=== PATIENT | male | born 1990 | race African-American/Black ===

== ENCOUNTER 2017-09-03 14:44 | Inpatient (IN) | payer BC ==
[2017-09-04 06:55] LABS: Basophils % (A) 1 %; Eosinophils # (A) 0.4 k/uL (0-0.7); Eosinophils % (A) 5 %; HCT 47.2 % (39.0-53.0); HGB 14.9 gm/dL (13.0-17.5); Lymphocytes # (A) 2.9 k/uL (1.0-4.8); Lymphocytes % (A) 40 %; MCH 28.9 pg (25.0-35.0); MCHC 31.7 g/dL (31.0-37.0); MCV 91.2 fL (80.0-100.0); Mean Platelet Volume 8.1; Monocytes # (A) 0.5 k/uL (0-1.0); Monocytes % (A) 7 %; Neutrophils # (A) 3.3 k/uL (1.3-7.7); Neutrophils % (A) 45 %; Platelet Count 190 k/uL (150-450); RBC 5.17 m/uL (4.30-5.90); RDW 12.9 % (11.5-15.5); WBC 7.3 k/uL (3.8-10.6)
[2017-09-04 07:12] LABS: ALT 38 U/L (21-72); AST 20 U/L (17-59); Albumin 3.9 g/dL (3.5-5.0); Alkaline Phosphatase 45 U/L (38-126); Anion Gap 5 mmol/L; Blood Urea Nitrogen 14 mg/dL (9-20); Calcium 9.2 mg/dL (8.4-10.2); Carbon Dioxide 28 mmol/L (22-30); Chloride 106 mmol/L (98-107); Cholesterol 134 mg/dL (<200); Glucose 96 mg/dL (74-99); HDL Cholesterol 46 mg/dL (40-60); LDL Cholesterol,Calculated 71 mg/dL (0-99); Magnesium 1.9 mg/dL (1.6-2.3); Potassium 4.2 mmol/L (3.5-5.1); Sodium 139 mmol/L (137-145); Total Bilirubin 0.5 mg/dL (0.2-1.3); Total Protein 6.3 g/dL (6.3-8.2); Triglycerides 86 mg/dL (<150)
--- NOTE | 2017-09-04 12:34 | P.HPIM ---
History of Present Illness This is a pleasant 27 years old male with past medical history of asthma, hypertension, ADD/ADHD, on Inderal, currently day smoker and marijuana abuse who presents with difficulty talking. The aunt and his grandfather were at bedside and the patient noding yes for them to be involved in his MANAGEMENT. As per aunt patient is under a lot of stress when he has about 3 weeks ago a big fight with his family areas patient was complaining of from slurred speech 3 weeks ago, after 2 weeks ago he has lost his ability to talk, and one week ago they noticed that also he has lost his ability to writing as well however he can type on the eye phone and he wants to say, but as per and takes him longer than usual. Patient looks awake and oriented. His not able to talk. However the patient denies any headache, no blurred vision, no difficulty eating , no weakness or abnormal sensations in his extremities or anywhere else. No change in urine or bowel habits. No urine or bowel incontinence. No fever. No history of trauma. Patient to [facility], and he had a negative CAT scan of the head as per family at bedside. And was tranferred to [facility] for needing of psych evaluation. Review of Systems CONSTITUTIONAL: No fever, no malaise, no fatigue. HEENT: No recent visual problems or hearing problems. Denied any sore throat. CARDIOVASCULAR: No orthopnea, PND, no palpitations, no syncope. PULMONARY: No shortness of breath, no cough, no hemoptysis. GASTROINTESTINAL: No diarrhea, no nausea, no vomiting, no abdominal pain. Normoactive bowel sounds. NEUROLOGICAL: No headaches, no weakness, no numbness. HEMATOLOGICAL: Denies any bleeding or petechiae. GENITOURINARY: Denies any burning micturition, frequency, or urgency. MUSCULOSKELETAL/RHEUMATOLOGICAL: Denies any joint pain, swelling, or any muscle pain. ENDOCRINE: Denies any polyuria or polydipsia. Past Medical History Past Medical History: Asthma, Hypertension History of Any Multi-Drug Resistant Organisms: None Reported Past Anesthesia/Blood Transfusion Reactions: Unable to Obtain Past Psychological History: ADD/ADHD Additional Psychological History / Comment(s): Adderall Smoking Status: Current some day smoker Past Alcohol Use History: None Reported Past Drug Use History: Marijuana Medications and Allergies Home Medications Medication Instructions Recorded Confirmed Type Dextroamphetamine/Amphetamine 20 mg PO DAILY 09/03/17 09/03/17 History [Adderall] Zolpidem [Ambien] 10 mg PO HS 09/03/17 09/03/17 History Allergies Allergy/AdvReac Type Severity Reaction Status Date / Time No Known Allergies Allergy Verified 09/03/17 17:10 Physical Exam Vitals: Vital Signs Temp Pulse Resp BP Pulse Ox 09/04/17 11:37 66 18 09/04/17 11:36 98.2 F 66 18 136/84 97 09/04/17 08:10 97.5 F L 54 L 16 121/84 97 09/04/17 08:04 55 L 17 09/04/17 04:05 97.5 F L 55 L 17 119/68 98 09/04/17 04:00 60 20 09/03/17 23:51 98.3 F 60 18 117/72 96 09/03/17 20:10 98.4 F 65 17 118/58 98 09/03/17 17:10 99.0 F 70 20 126/84 98 09/03/17 16:51 99.0 F 70 18 126/84 98 Intake and Output 09/03/17 09/04/17 09/04/17 22:59 06:59 14:59 Intake Total 0 Output Total 200 Balance -200 0 Intake: Oral 0 Output: Urine 200 Other: Voiding Method Toilet Toilet Toilet Urinal Urinal Urinal # Voids 1 1 Weight 116.7 kg 113.4 kg GENERAL: The patient is alert and oriented x3, not in any acute distress. Well developed, well nourished. HEENT: Pupils are round and equally reacting to light. EOMI. No scleral icterus. No conjunctival pallor. Normocephalic, atraumatic. No pharyngeal erythema. No thyromegaly. CARDIOVASCULAR: S1 and S2 present. No murmurs, rubs, or gallops. PULMONARY: Chest is clear to auscultation, no wheezing or crackles. ABDOMEN: Soft, nontender, nondistended, normoactive bowel sounds. No palpable organomegaly. MUSCULOSKELETAL: No joint swelling or deformity. EXTREMITIES: No cyanosis, clubbing, or pedal edema. NEUROLOGICAL: Gross neurological examination did not reveal any focal deficits. SKIN: No rashes. Results CBC & Chem 7: 09/04/17 06:32 09/04/17 06:32 Thrombosis Risk Factor Assmnt - Choose All That Apply Any of the Below Risk Factors Present?: Yes Each Factor Represents 1 point: Obesity (BMI >25) Other Risk Factors: No Other congenital or acquired thrombophilia - If yes, enter type in comment: No Thrombosis Risk Factor Assessment Total Risk Factor Score: 1 Thrombosis Risk Factor Assessment Level: Low Risk Assessment and Plan Assessment: Difficulty talking for 3 weeks duration , rule out organic as well as psychiatric causes Possible stroke, History of anxiety, and anger, which might be contributing to his symptoms. needs psychiatrist evaluation History of asthma Current cigarette smoker History of marijuana abuse Plan: 27 years old male with history of substance abuse, who presents because of difficulty talking and writing for 3 weeks duration. Continue with same treatment. Continue with symptomatic treatment. Resume home medication. Patient will need neurological and psychiatric evaluation. Standard blood work this CBC, CMP, TSH, homocysteine, lipid panel, magnesium. We'll send urine toxicology and urine analysis, as the patient and he nodded "ok" . Place the patient on telemetry. Patient didn't want nicotine patch. Monitor lytes and vitals. DVT and GI prophylaxis. Further recommendation based on the clinical course DVT prophylaxis: Patient is active and mobile with no walking difficulty. Heparin has more risks than benefits at now react continue with mechanical prophylaxis GI prophylaxis: Not needed
--- NOTE | 2017-09-04 16:40 | P.CNNES ---
History of Present Illness Consult date: 09/04/17 Requesting physician: Chriss E Sheet Reason for Consult: Aphasia Chief complaint: Inability to Speak History of Present Illness: Neurology is consulting on a 27-year-old male with a history of asthma, hypertension, ADD/ADHD, currently daily smoking marijuana user with difficulty with speech. Patient has extensive home disruption and significant police response to the location on an ongoing basis. approximately 2 weeks ago, patient had significant triggering event. Patient then began having slurred speech, inability to express words and complete sentences. Ultimately ending in his inability to talk within the last 7 days. Patient reportedly did also lose his ability to write. Patient denies any other neurological deficits or changes. Patient's aunt is in the room with him. On contact, patient is supine in bed resting in no acute distress. patient is alert and oriented 3. As noted and is in the room. Patient is able to intermittently express responses to questions in 1-2 word answers but then at times cannot engage in active speech. Patient cannot engage in multiple word sentences but now has the ability to write it on a very basic level. Patient becomes extremely frustrated when attempting to communicate verbally. Aunt states that he has expressed to her he knows what he wants to say but he cannot say it at times. This involves all ranges of his life activities and not just related to his stressful home events. as noted patient does have psychiatric history related ADD and ADHD as well as anxiety per aunt. since being hospitalized, patient's symptoms are slowly beginning to relent and aunt does associated at least some relenting to being out of his stressful environment. Review of Systems systems not noted are negative Past Medical History Past Medical History: Asthma, Hypertension History of Any Multi-Drug Resistant Organisms: None Reported Past Anesthesia/Blood Transfusion Reactions: Unable to Obtain Past Psychological History: ADD/ADHD Additional Psychological History / Comment(s): Adderall Smoking Status: Current some day smoker Past Alcohol Use History: None Reported Past Drug Use History: Marijuana Medications and Allergies Home Medications Medication Instructions Recorded Confirmed Type Dextroamphetamine/Amphetamine 20 mg PO DAILY 09/03/17 09/03/17 History [Adderall] Zolpidem [Ambien] 10 mg PO HS 09/03/17 09/03/17 History Allergies Allergy/AdvReac Type Severity Reaction Status Date / Time No Known Allergies Allergy Verified 09/03/17 17:10 Physical Examination - Vital Signs Vital Signs: Vital Signs Temp Pulse Resp BP Pulse Ox 09/04/17 15:40 66 18 09/04/17 11:37 66 18 09/04/17 11:36 98.2 F 66 18 136/84 97 09/04/17 08:10 97.5 F L 54 L 16 121/84 97 09/04/17 08:04 55 L 17 09/04/17 04:05 97.5 F L 55 L 17 119/68 98 09/04/17 04:00 60 20 09/03/17 23:51 98.3 F 60 18 117/72 96 09/03/17 20:10 98.4 F 65 17 118/58 98 09/03/17 17:10 99.0 F 70 20 126/84 98 09/03/17 16:51 99.0 F 70 18 126/84 98 Intake and Output 09/04/17 09/04/17 09/04/17 06:59 14:59 22:59 Intake Total 120 Balance 120 Intake: Oral 120 Other: Voiding Method Toilet Toilet Toilet Urinal Urinal Urinal # Voids 1 Weight 113.4 kg General appearance: Alert & oriented x3, no apparent distress. Head: Atraumatic, normocephalic, normal inspection Eyes: Well appearance, PERRLA, EOMI. Absent scleral icterus, conjunctival injection, nystagmus, periorbital swelling. Ear, nose and throat: Normal exam, mucous membranes moist Neck: Normal inspection, absent tenderness, lymphadenopathy. Respiratory: No increased work of breathing Cardiovascular: Regular rate, rhythm GI/abdominal: No guarding Extremities: Full range of motion, normal capillary refill, no tenderness, pedal edema joint swelling, calf tenderness. patient unable to engage in fluent speech as noted. Neurological: cranial nerves II through XII intact no lateralizing weakness no seizure activity noted on physical exam no pronator drift and no nystagmus. Left lower extremity: 5/5 Right lower extremity: 5/5 Left upper extremity: 5/5 Right upper extremity:5 /5 Sensation: Left lower extremity: normal Right lower extremity: normal Left upper extremity: normal Right upper extremity:normal Psychological: Appears anxious as well as under emotional stress. Very emotional when interacting with provider including mood swings as well. Results - Laboratory Findings CBC and BMP: 09/04/17 06:32 07/29/18 06:32 Assessment and Plan (1) Aphasia Narrative/Plan: patient does have a aphasia. Patient is unable to speak more than 1-2 word responses intermittently. Patient is not able to respond at all times with verbal responses. When patient is unable to verbally respond, patient becomes distressed and withdraws. Patient did not have a CT of the brain on arrival. Given the patient's 2 week history of symptoms, I will forego CT of the brain and wait for MRI of the brain tomorrow. Patient will have further stroke workup to include EEG, carotid Doppler study, serum homocysteine. Recommend psychiatric consult as well. Current Visit: Yes Status: Acute Code(s): R47.01 - APHASIA SNOMED Code(s) : 45976072 (2) Anxiety Narrative/Plan: Recommence psych consult as noted in #1 Current Visit: Yes Status: Acute Code(s): F41.9 - ANXIETY DISORDER, UNSPECIFIED SNOMED Code(s): 17885973 (3) Cannabis abuse Narrative/Plan: discussed cannabis use Recommend psych consults as noted #1 above, reassess with patient. Current Visit: Yes Status: Acute Code(s): F12.10 - CANNABIS ABUSE, UNCOMPLICATED SNOMED Code(s): 65831090 (4) ADD (attention deficit disorder) Narrative/Plan: as noted #1 above, recommend psychiatric consultation Current Visit: Yes Status: Acute Code(s): F98.8 - OTH BEHAV/EMOTN DISORD W ONSET USLY OCCUR IN CHLDHD AND ADOL SNOMED Code(s): 662648531 Plan: Status: Neurology will continue to follow and provide updates as needed or warranted. Contact our office with any questions I have discussed the plan of care with the physician prior to implementation and he agrees with the plan as implemented.
[2017-09-04 17:03] LABS: Appearance,Urine Clear (Clear); Bilirubin,Urine Negative (Negative); Blood,Urine Negative (Negative); Color,Urine Light Yellow; Glucose,Urine (UA) Negative (Negative); Ketones,Urine Negative (Negative); Leukocyte Esterase,Urine Negative (Negative); Nitrite,Urine Negative (Negative); PH, Urine 6.5 (5.0-8.0); Protein,Urine Negative (Negative); Specific Gravity,Urine 1.007 (1.001-1.035); Urobilinogen,Urine <2.0 mg/dL (<2.0)
--- NOTE | 2017-09-05 10:47 | US ---
EXAMINATION TYPE: US carotid duplex BILAT DATE OF EXAM: 09/05/2017 COMPARISON: NONE CLINICAL HISTORY: aphasia, rule out stroke. HTN. 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 EXAM MEASUREMENTS: RIGHT: Peak Systolic Velocity (PSV) cm/sec ----- Right CCA: 117.3 ----- Right ICA: 120.0 ----- Right ECA: 100.0 ICA/CCA ratio: 1.0 RIGHT: End Diastole cm/sec ----- Right CCA: 22.0 ----- Right ICA: 27.4 ----- Right ECA: 14.4 LEFT: Peak Systolic Velocity (PSV) cm/sec ----- Left CCA: 127.3 ----- Left ICA: 106.2 ----- Left ECA: 120.0 ICA/CCA ratio: 0.8 LEFT: End Diastole cm/sec ----- Left CCA: 22.9 ----- Left ICA: 29.4 ----- Left ECA: 11.6 VERTEBRALS (direction of flow): Right Vertebral: Antegrade Left Vertebral: Antegrade Rhythm: Arrhythmia No significant stenosis on grayscale imaging. No wall thickening. No plaque. IMPRESSION: 1. Peak systolic velocities that are approaching elevated within the carotid systems bilaterally with out abnormal internal carotid artery to common carotid artery ratio. Therefore findings suggest hyper tension rather than focal stenosis. Additionally no focal stenosis is seen on grayscale imaging. 2. Incidentally noted arrhythmia. Correlate with EKG.
[2017-09-05 11:56] LABS: Urine Alcohol Negative (Negative); Urine Barbiturate Negative (Negative); Urine Cocaine Negative (Negative); Urine Methadone Negative (Negative); Urine Opiates Negative (Negative); Urine Phencyclidine Negative (Negative)
[2017-09-05] MEDS ORDERED: LORazepam 2 MG/ML INJ IV PRN (13:39)
--- NOTE | 2017-09-05 13:59 | P.DS ---
Providers Date of admission: 09/03/17 16:31 Attending physician: Chriss Cabral MD Consults: 09/03/17 17:23 Consult Physician Urgent Consulting Provider: Nathanael Caraballo Consult Reason/Comments: Aphasia Do you want consulting provider notified?: Yes 09/04/17 11:21 Consult Physician Urgent Consulting Provider: Delmi Kraus Consult Reason/Comments: anxiety-agitation Do you want consulting provider notified?: Already Contacted Primary care physician: Stated None Hospital Course: 27-year-old gentleman with history of ADD/ADHD is admitted for aphasia or difficulty talking. Patient is able to talk to me. No other focal neurological deficit appreciated carotid Doppler was opted which did not show any significant abnormality. And the patient is getting an MRI. If MRI is negative to essentially rule out organic causes for aphasia. Patient aphasia is probably secondary to his psychiatric issues psychiatric was consulted. If cleared by psychiatry and neurology patient will be discharged today. PHYSICAL EXAMINATION: GENERAL: The patient is alert and oriented x3, not in any acute distress. Well developed, well nourished. HEENT: Pupils are round and equally reacting to light. EOMI. No scleral icterus. No conjunctival pallor. Normocephalic, atraumatic. No pharyngeal erythema. No thyromegaly. CARDIOVASCULAR: S1 and S2 present. No murmurs, rubs, or gallops. PULMONARY: Chest is clear to auscultation, no wheezing or crackles. ABDOMEN: Soft, nontender, nondistended, normoactive bowel sounds. No palpable organomegaly. MUSCULOSKELETAL: No joint swelling or deformity. EXTREMITIES: No cyanosis, clubbing, or pedal edema. NEUROLOGICAL: Gross neurological examination did not reveal any focal deficits. SKIN: No rashes. Difficulty talking for 3 weeks duration , probably psychiatric ADHD History of anxiety, History of asthma: Not in acute exacerbation Current cigarette smoker History of marijuana abuse Plan - Discharge Summary Discharge Rx Participant: No New Discharge Prescriptions: Continue Dextroamphetamine/Amphetamine [Adderall] 20 mg PO DAILY No Action Zolpidem [Ambien] 10 mg PO HS Discharge Medication List Dextroamphetamine/Amphetamine [Adderall] 20 mg PO DAILY 09/03/17 [History] Zolpidem [Ambien] 10 mg PO HS 09/03/17 [History] Discharge Disposition: HOME SELF-CARE
[2017-09-05 14:53] VITALS: BMI 35.9
--- NOTE | 2017-09-05 16:23 | P.CN ---
Psychiatric Consult - . Consult date: 09/05/17 Consult:: 09/05/17 16:02 Identification: Patient is a 27-year-old male who was transferred from [facility] for a psych eval. Reason for Consult: Anxiety and agitation History of Present Illness: Patient's chart was reviewed and the patient was seen and interviewed in his room, without family members at his request. Patient is unable to speak, responded to most questions he attempted to do so on several occasions and at times was able to respond to some of my questions at other times he would just shrug and it and indicate this meant he didn't know. Patient stated he couldn't even text while he was with me this time and was unsure of why. Per the record the patient apparently had some disagreement 3 weeks ago with the family which she is unable to indicate to me occurred, began slurring his speech at that time in 2 weeks ago began not talking and a week ago began not writing. He had been using his cell phone to text and per the nurse has been using his cell phone here to talk and communicate with staff. Per the patient he is unable to indicate to me that there was any fights with anyone in the family or any upsetting incident that occurred 3 weeks ago other than the fact that 2 weeks ago he was laid off from work. 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 He indicated to me that he lives with his sister, her 4 children and her father is not the patient's father and indicated that there was a lot of noise and activity in the house but could not explain to me why this was bothersome to him. He states that he had been living elsewhere before with friends and indicated that he was tired of living with them. He reported to me that he has never had a difficulty like this before in the past, stated that he has never been treated for any depressive episodes, manic episodes or psychotic symptoms. Patient is taking Adderall and temazepam and looking on the MAPS he is prescribed Adderall 20 mg numbers 90 last picked up on August 08, temazepam 30 mg # 30 last picked up on 07/01. Patient states that he's been on these medications for the last 2 years. He states he didn't take them for the last 2 or 3 days. Patient reported that he was eating and sleeping at night. Patient could identify nothing that precipitated this event no incidents of fighting with the family, friends or other traumatic event that may have occurred. Patient denied that he is ever felt suicidal in the past no history of suicide attempts and denies current suicidal ideation. Patient could not endorse any depressive history in the past, manic history in the past or psychotic symptoms in the past. Patient did not endorse any of the symptoms currently. Patient was unable to explain to me why the symptoms began he would just shrug and point to other people in the room for the other patient and stating that this was his problem noise. Past Psychiatric History: Per the patient he has no prior psychiatric history but has been treated for ADD by his primary care physician with Adderall 20 mg 3 times a day as well as temazepam 30 mg at bedtime Past Medical/Surgical History: Patient has a history of asthma, hypertension and it is reported in the chart that he was born with a hole in his heart Family History: Unable to obtain Social History: Patient states that he currently lives with his sister her 4 children and sister's father. He states he's been living there for 4 months prior to that he was living with friends. 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 Patient was unable to give me any further history as at this point patient stopped talking and would just shrug his shoulders. Substance Use History: Patient states he drinks 2 beers a night, smoked marijuana daily since the age of 16 and use cocaine in the past. He denies any other drug use or IV drug use and does use tobacco products. He could not tell me if he had been taking or using anything different recently. Legal History: Unable to obtain Mental status: Appearance/Attitude: Patient is dressed in casual clothing, was found in the ICU lounge watching television, patient came to his room to be interviewed and ambulated without difficulty, he made intermittent eye contact and was superficially cooperative Behavior: Patient did not exhibit any psychomotor agitation or retardation Speech/Language: Patient's speech was intermittent, at times he spoke in a series soft voice and incomplete sentences and answer yes or no to questions or would remain mute and just shrug his shoulders and making hand gestures as though he didn't know. Thought Process: Unable to assess is his answers to the questions he did respond verbally to work goal-directed Thought Content: Patient denied auditory or visual hallucination and no delusions or paranoid ideation were elicited. Patient did not appear to be responding to internal stimuli during the interview. Patient was unable to tell me what precipitated his symptoms beginning 3 weeks ago but did acknowledge that they began with slurred speech, then the inability to talk then the inability to write. Patient was using his phone to text things to speak with me however he had difficulty doing this during the interview and gave up. He states that he's been sleeping and eating well at home. Suicidal/Homicidal Ideation: Patient denied any current suicidal or homicidal ideation and has no history of suicide attempts Sensorium/Cognition: Patient was alert and oriented to person, location and situation further testing was unable to be obtained due to the patient's inability to participate in the interview Mood/Affect: Patient's mood was sullen, his affect was blunted Insight/Judgment: Patient's insight and judgment are fair but difficult to assess Assessment: Patient presents after a three-week history of slurred speech, then the inability to talk and an inability to write but still text being on his cell phone to communicate. Patient has a history of marijuana use on a daily basis, as well as being prescribed Adderall and temazepam which she has taken on a daily basis for at least 2 years. Patient has no prior psychiatric history no history of suicide attempts and states he's never been treated with any other medications. It is unclear to me if this is due to a physiologic problem, a reaction to an unknown substance that he used as his UDS was taken here and only showed positive marijuana. Patient could also be having a conversion disorder or a factitious disorder. Patient's computed tomography scan at the other facility was negative we are awaiting an MRI to be done tonight as well as an EEG. Patient's laboratory studies were all within normal limits other than the UDS being positive for cannabis. Diagnosis: History of ADD, Rule out a conversion disorder, rule out a factitious disorder Plan: Patient does not require an inpatient psychiatric admission, he is not expressing any suicidal or homicidal ideation at this time, there is no evidence of a psychotic process nor is there any evidence of a depressive or manic process. Patient continues to have a workup to rule out all physiologic reasons for his symptoms, I spoke with social work regarding giving the patient referrals for outpatient counseling as there seems to be some stress and chaos in his life which I am unable to clearly define. I would not begin any psychotropic medication at this time I would not recommend that the patient restart his Adderall or temazepam when he leaves the hospital. I would also encourage the patient to avoid all alcohol and drugs once he leaves the hospital. I will sign off the case if there are any further questions or concerns please don't hesitate to contact me 09/05/17 16:06 09/05/17 16:14 09/05/17 16:21 09/05/17 16:23
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
--- NOTE | 2017-09-05 22:24 | MR ---
EXAMINATION TYPE: MR brain wo con DATE OF EXAM: 09/05/2017 COMPARISON: NONE HISTORY: Headaches, weakness, and lightheadedness or patient. Aphasia per order. TECHNIQUE: Multiplanar, multisequence imaging of the brain and brainstem is performed without IV cont rast. FINDINGS: Diffusion weighted images demonstrate no evidence of a recent infarct or other diffusion abnormality. There is no extraaxial fluid collection or significant white matter signal abnormality. The ventricu lar system and cisternal spaces are normal in size and appearance. The brain volume is age appropria te. Midline structures demonstrate normal morphology. The craniocervical junction appears within normal limits. Normal vascular flow voids are present. There is air-fluid level in the left maxillary sinus. Remainder paranasal sinuses are clear. The globes are intact bilaterally. No suspicious opacificatio n bilateral mastoid air cells is seen. IMPRESSION: Probable acute left maxillary sinusitis otherwise unremarkable study.
[2017-09-06 09:34] VITALS: RESP 18
[2017-09-06 11:47] VITALS: BP 142/78; PULSE 78; TEMP 98.1
--- NOTE | 2017-09-06 12:27 | P.DS ---
Providers Date of admission: 09/03/17 16:31 Attending physician: Chriss Cabral MD Consults: 09/03/17 17:23 Consult Physician Urgent Consulting Provider: Nathanael Caraballo Consult Reason/Comments: Aphasia Do you want consulting provider notified?: Yes 09/04/17 11:21 Consult Physician Urgent Consulting Provider: Delmi Kraus Consult Reason/Comments: anxiety-agitation Do you want consulting provider notified?: Already Contacted Primary care physician: Stated None Hospital Course: 27-year-old gentleman with history of ADD/ADHD is admitted for aphasia or difficulty talking. Patient is able to talk to me. No other focal neurological deficit appreciated carotid Doppler was obtained which did not show any significant abnormality. And the patient is getting an MRI. If MRI is negative to essentially rule out organic causes for aphasia. Patient aphasia is probably secondary to his psychiatric issues psychiatric was consulted. .Patient had an MRI which was negative. All the workup is negative. Patient may have some psychosomatic disorder or malingering contributed to his symptoms. Psychiatric evaluated the patient. The recommending to discontinue Adderall as well as Ambien his medications will be discontinued and patient will be discharged home to follow up with psychiatry as an outpatient. Please refer to neurology and psychiatric dictation for further details. PHYSICAL EXAMINATION: GENERAL: The patient is alert and oriented x3, not in any acute distress. Well developed, well nourished. HEENT: Pupils are round and equally reacting to light. EOMI. No scleral icterus. No conjunctival pallor. Normocephalic, atraumatic. No pharyngeal erythema. No thyromegaly. CARDIOVASCULAR: S1 and S2 present. No murmurs, rubs, or gallops. PULMONARY: Chest is clear to auscultation, no wheezing or crackles. ABDOMEN: Soft, nontender, nondistended, normoactive bowel sounds. No palpable organomegaly. MUSCULOSKELETAL: No joint swelling or deformity. EXTREMITIES: No cyanosis, clubbing, or pedal edema. NEUROLOGICAL: Gross neurological examination did not reveal any focal deficits. SKIN: No rashes. Difficulty talking for 3 weeks duration , probably psychiatric ADHD History of anxiety, History of asthma: Not in acute exacerbation Current cigarette smoker History of marijuana abuse Plan - Discharge Summary Discharge Rx Participant: No New Discharge Prescriptions: Discontinued Zolpidem [Ambien] 10 mg PO HS Dextroamphetamine/Amphetamine [Adderall] 20 mg PO DAILY Follow up Appointment(s)/Referral(s): Arin Perez MD [REFERRING] - 1 Week Nathanael Caraballo MD [STAFF PHYSICIAN] - 1 Week () Patient Instructions/Handouts: Aphasia (DC) Activity/Diet/Wound Care/Special Instructions: Please follow up with a primary care doctor in 1 week. Discharge Disposition: HOME SELF-CARE
--- NOTE | 2017-09-06 18:56 | EEG ---
ELECTROENCEPHALOGRAM REPORT DATE OF SERVICE: 09/06/2017 REASON FOR TESTING: Stroke. DESCRIPTION OF THE PROCEDURE: This EEG was performed using a 21-channel digital electroencephalograph, following international 10-20 system. DESCRIPTION OF THE RECORDING: From the beginning of the tracing, and with patient's eyes closed, the background rhythm was mostly consisting of 8 Hz alpha frequency in the posterior occipital leads. No obvious asymmetry is seen. Photic stimulation was performed with a minimal driving response seen. No pathological waves were elicited. Hyperventilation was not performed. The patient does reach stage II of sleep during the tracing and occasional sleep spindles are seen. No epileptiform discharges were seen. His EKG lead showed an irregularly irregular rhythm with a normal rate. INTERPRETATION: This asleep and awake EEG can be considered within normal limits, except his EKG lead showed an irregularly irregular rhythm with a normal rate. No epileptiform discharges were seen. The absence of epileptiform discharges does not rule out the diagnosis of epilepsy; therefore clinical correlation is recommended. MMLYN / BERNAN: [id number] /
== END 2017-09-06 16:07 | disposition home or self-care (01) | DRG 93 ==
LOC: 6SEL 16:31
PROVIDERS: ADMIT Internal Medicine; ATTEND Internal Medicine
DX: R47.01 Aphasia (principal); F41.9 Anxiety disorder, unspecified; F90.9 Attention-deficit hyperactivity disorder, unspecified type; F12.10 Cannabis abuse, uncomplicated; F17.210 Nicotine dependence, cigarettes, uncomplicated; Z76.5 Malingerer [conscious simulation]; F45.9 Somatoform disorder, unspecified
CPT/HCPCS: 70551; 80053; 80061; 80306; 81003; 83090; 83735; 84443; 85025; 87086; 93880; 95819

== ENCOUNTER 2017-09-09 12:42 | Emergency (ER) | payer BC ==
[2017-09-09 13:00] VITALS: BP 124/81; PULSE 74; RESP 18; TEMP 98.6
--- NOTE | 2017-09-09 13:49 | ED ---
General Adult HPI - General Chief complaint: Neuro Symptoms/Deficit Stated complaint: confusion, weakness Time Seen by Provider: 09/09/17 13:00 Source: patient, family, RN notes reviewed, old records reviewed Mode of arrival: ambulatory Limitations: no limitations - History of Present Illness Initial comments: 27-year-old male presenting with a facial, and progressive neurologic symptoms. Patient was seen at this institution with aphasia, dysarthria, he was evaluated by neurology and psychiatry. Patient has failed to improve according to his mother. He is also complaining of some tongue numbness. Denies headache. Denies focal weakness. He does complain of some clumsiness with his hands. Patient has been ambulatory. No vision changes. No chest pain or shortness of breath. No abdominal pain. No nausea vomiting. Patient was seen by both neurology and psychiatry, thought to be stress response. - Related Data Home Medications Medication Instructions Recorded Confirmed No Known Home Medications 09/09/17 09/09/17 Allergies Allergy/AdvReac Type Severity Reaction Status Date / Time No Known Allergies Allergy Verified 09/09/17 13:18 Review of Systems ROS Statement: Those systems with pertinent positive or pertinent negative responses have been documented in the HPI. ROS Other: All systems not noted in ROS Statement are negative. Past Medical History Past Medical History: Asthma, Hypertension History of Any Multi-Drug Resistant Organisms: None Reported Past Surgical History: Adenoidectomy, Orthopedic Surgery Additional Past Surgical History / Comment(s): hand Past Anesthesia/Blood Transfusion Reactions: Unable to Obtain Past Psychological History: ADD/ADHD Smoking Status: Current some day smoker Past Alcohol Use History: None Reported Past Drug Use History: Marijuana General Exam Limitations: no limitations General appearance: alert, in no apparent distress Head exam: Present: atraumatic, normocephalic Eye exam: Present: normal appearance, PERRL, EOMI ENT exam: Present: normal exam, normal oropharynx Neck exam: Present: normal inspection. Absent: tenderness, meningismus Respiratory exam: Present: normal lung sounds bilaterally. Absent: respiratory distress, wheezes, rales Cardiovascular Exam: Present: regular rate, normal rhythm GI/Abdominal exam: Present: soft. Absent: distended, tenderness, guarding, rebound Extremities exam: Present: normal inspection, normal capillary refill, pedal edema Neurological exam: Present: alert, oriented X3. Absent: CN II-XII intact (A phasic, mild dysarthria) Psychiatric exam: Present: normal affect, normal mood. Absent: homicidal ideation, suicidal ideation Skin exam: Present: warm, dry, intact. Absent: cyanosis, diaphoretic Course Vital Signs 09/09/17 12:56 Temperature 98.6 F Pulse Rate 74 Respiratory 18 Rate Blood Pressure 124/81 O2 Sat by Pulse 99 Oximetry Medical Decision Making - Medical Decision Making Given the patient's recent admission and workup case was discussed with neurology on-call, Shantelle from Dr. Caraballo's office. Patient had MRI, computed tomography scan, carotid ultrasound, EEG, multiple metabolic laboratory studies. Workup was completely negative. Neurology does not recommend any further testing at this time. They are willing to see the patient as an outpatient within the next several days. Appointment is made for this patient while he is in the emergency department. Patient and his mother are agreeable with plan. Disposition Clinical Impression: Aphasia Disposition: HOME SELF-CARE Condition: Fair Is patient prescribed a controlled substance at d/c from ED?: No Referrals: Arin Perez MD [Primary Care Provider] - 1-2 days Nathanael Caraballo MD [STAFF PHYSICIAN] - 1-2 days Time of Disposition: 13:49
== END 2017-09-09 13:50 | disposition home or self-care (01) ==
LOC: EC 12:42
DX: R47.01 Aphasia (principal); R53.1 Weakness; R41.0 Disorientation, unspecified; R20.0 Anesthesia of skin; F82 Specific developmental disorder of motor function; F17.200 Nicotine dependence, unspecified, uncomplicated
CPT/HCPCS: 99285

== ENCOUNTER 2017-09-20 17:27 | Emergency (ER) | payer BC ==
[2017-09-20] MEDS ORDERED: SODIUM CHLORIDE 0.9% 1,000 ML IV STA ×3 (17:59→19:44)
--- NOTE | 2017-09-20 18:15 | ED ---
General Adult HPI - General Stated complaint: mental health Time Seen by Provider: 09/20/17 17:29 Source: RN notes reviewed, old records reviewed - History of Present Illness Initial comments: This is a 27-year-old male the ER for evaluation. Patient resents today for evaluation regarding mental health. Patient's brought in by PD as he was found at his friend's house crying on the ground naked. Patient states that he is unsure of why he was doing this. Patient is going going through outpatient workup regarding mental and psychiatric illness, versus neurological illness. Patient and family are both concern is of swelling to right-sided face. Patient denies any shortness of breath no difficulty swallowing no recent fevers. - Related Data Home Medications Medication Instructions Recorded Confirmed traZODone HCL [Desyrel] 100 mg PO HS 09/20/17 09/20/17 Previous Rx's Medication Instructions Recorded Amoxic-Pot Clav 875-125Mg 1 tab PO Q12HR #20 tablet 09/20/17 [Augmentin 875-125] Allergies Allergy/AdvReac Type Severity Reaction Status Date / Time No Known Allergies Allergy Verified 09/20/17 17:53 Review of Systems ROS Statement: Those systems with pertinent positive or pertinent negative responses have been documented in the HPI. ROS Other: All systems not noted in ROS Statement are negative. Past Medical History Past Medical History: Asthma, Hypertension History of Any Multi-Drug Resistant Organisms: None Reported Past Surgical History: Adenoidectomy, Orthopedic Surgery Additional Past Surgical History / Comment(s): hand Past Anesthesia/Blood Transfusion Reactions: Unable to Obtain Past Psychological History: ADD/ADHD Smoking Status: Current some day smoker Past Alcohol Use History: None Reported Past Drug Use History: Marijuana General Exam - General Exam Comments Initial Comments: does have swollen lymph nodes right side of face General appearance: alert, in no apparent distress Head exam: Present: atraumatic, normocephalic, normal inspection Eye exam: Present: normal appearance, PERRL, EOMI. Absent: scleral icterus, conjunctival injection, periorbital swelling ENT exam: Present: normal exam, mucous membranes moist Neck exam: Present: normal inspection. Absent: tenderness, meningismus, lymphadenopathy Respiratory exam: Present: normal lung sounds bilaterally. Absent: respiratory distress, wheezes, rales, rhonchi, stridor Cardiovascular Exam: Present: regular rate, normal rhythm, normal heart sounds. Absent: systolic murmur, diastolic murmur, rubs, gallop, clicks GI/Abdominal exam: Present: soft, normal bowel sounds. Absent: distended, tenderness, guarding, rebound, rigid Extremities exam: Present: normal inspection, full ROM, normal capillary refill. Absent: tenderness, pedal edema, joint swelling, calf tenderness Back exam: Present: normal inspection Neurological exam: Present: alert, oriented X3, CN II-XII intact Psychiatric exam: Present: normal affect, normal mood Skin exam: Present: warm, dry, intact, normal color. Absent: rash Course Vital Signs 09/20/17 09/20/17 09/20/17 18:17 19:09 19:41 Temperature 98.8 F 99.0 F Pulse Rate 91 89 Respiratory 18 18 Rate Blood Pressure 128/69 134/75 O2 Sat by Pulse 97 97 Oximetry 09/20/17 09/20/17 09/20/17 20:16 20:29 21:15 Temperature 99.0 F Pulse Rate 87 82 Respiratory 16 16 18 Rate Blood Pressure 131/76 125/96 O2 Sat by Pulse 97 97 Oximetry 09/20/17 21:38 Temperature Pulse Rate 85 Respiratory 18 Rate Blood Pressure 125/96 O2 Sat by Pulse 96 Oximetry - Reevaluation(s) Reevaluation #1: PD did bring in patient, patient is not petitioned for evaluation by psychiatry The patient, family at length regarding patient's symptoms and treatment, evaluation and follow-up. EKG Findings - EKG Comments: EKG Findings:: EKG shows sinus rhythm rate of 90, CT 166, QRS 94, QTc 420 Medical Decision Making - Medical Decision Making Plan I male the ER for evaluation of right ear pain, right-sided facial swelling. Patient does have right ear infection, will continue treatment for ear infection. We'll continue outpatient treatment for evaluation regarding symptoms as he was found lying naked in friend's yard. Patient is not homicidal or suicidal, is cooperative here in the emergency room and can be discharged home to family - Lab Data Result diagrams: 09/20/17 19:08 09/20/17 19:08 Lab Results 09/20/17 09/20/17 09/20/17 Range/Units 19:08 19:08 19:08 WBC 8.4 (3.8-10.6) k/uL RBC 5.17 (4.30-5.90) m/uL Hgb 15.7 (13.0-17.5) gm/dL Hct 45.7 (39.0-53.0) % MCV 88.5 (80.0-100.0) fL MCH 30.4 (25.0-35.0) pg MCHC 34.3 (31.0-37.0) g/dL RDW 12.2 (11.5-15.5) % Plt Count 186 (150-450) k/uL Neutrophils % 73 % Lymphocytes % 19 % Monocytes % 6 % Eosinophils % 1 % Basophils % 1 % Neutrophils # 6.1 (1.3-7.7) k/uL Lymphocytes # 1.6 (1.0-4.8) k/uL Monocytes # 0.5 (0-1.0) k/uL Eosinophils # 0.1 (0-0.7) k/uL Basophils # 0.0 (0-0.2) k/uL ESR (0-15) mm/hr PT (9.0-12.0) sec INR (<1.2) Sodium 141 (137-145) mmol/L Potassium 4.5 (3.5-5.1) mmol/L Chloride 109 H (98-107) mmol/L Carbon Dioxide 20 L (22-30) mmol/L Anion Gap 12 mmol/L BUN 13 (9-20) mg/dL Creatinine 0.90 (0.66-1.25) mg/dL Est GFR (CKD-EPI)AfAm >90 (>60 ml/min/1.73 sqM) Est GFR (CKD-EPI)NonAf >90 (>60 ml/min/1.73 sqM) Glucose 118 H (74-99) mg/dL Calcium 9.6 (8.4-10.2) mg/dL Total Bilirubin 0.5 (0.2-1.3) mg/dL AST 25 (17-59) U/L ALT 37 (21-72) U/L Alkaline Phosphatase 42 (38-126) U/L Total Creatine Kinase 127 (55-170) U/L CK-MB (CK-2) 0.7 (0.0-2.4) ng/mL CK-MB (CK-2) Rel Index 0.6 Troponin I <0.012 (0.000-0.034) ng/mL C-Reactive Protein (<10.0) mg/L Total Protein 7.0 (6.3-8.2) g/dL Albumin 4.5 (3.5-5.0) g/dL Amylase 66 (30-110) U/L Lipase 133 (23-300) U/L Urine Color Urine Appearance (Clear) Urine pH (5.0-8.0) Ur Specific [place] (1.001-1.035) Urine Protein (Negative) Urine Glucose (UA) (Negative) Urine Ketones (Negative) Urine Blood (Negative) Urine Nitrite (Negative) Urine Bilirubin (Negative) Urine Urobilinogen (<2.0) mg/dL Ur Leukocyte Esterase (Negative) Salicylates <1.0 mg/dL Urine Opiates Screen (NotDetected) Ur Oxycodone Screen (NotDetected) Urine Methadone Screen (NotDetected) Ur Propoxyphene Screen (NotDetected) Acetaminophen <10.0 ug/mL Ur Barbiturates Screen (NotDetected) U Tricyclic Antidepress (NotDetected) Ur Phencyclidine Scrn (NotDetected) Ur Amphetamines Screen (NotDetected) U Methamphetamines Scrn (NotDetected) U Benzodiazepines Scrn (NotDetected) [place] <0.2 mmol/L Urine Cocaine Screen (NotDetected) U Marijuana (THC) Screen (NotDetected) Serum Alcohol <10 mg/dL 09/20/17 09/20/17 09/20/17 Range/Units 19:08 19:08 19:08 WBC (3.8-10.6) k/uL RBC (4.30-5.90) m/uL Hgb (13.0-17.5) gm/dL Hct (39.0-53.0) % MCV (80.0-100.0) fL MCH (25.0-35.0) pg MCHC (31.0-37.0) g/dL RDW (11.5-15.5) % Plt Count (150-450) k/uL Neutrophils % % Lymphocytes % % Monocytes % % Eosinophils % % Basophils % % Neutrophils # (1.3-7.7) k/uL Lymphocytes # (1.0-4.8) k/uL Monocytes # (0-1.0) k/uL Eosinophils # (0-0.7) k/uL Basophils # (0-0.2) k/uL ESR 2 (0-15) mm/hr PT 10.9 (9.0-12.0) sec INR 1.1 (<1.2) Sodium (137-145) mmol/L Potassium (3.5-5.1) mmol/L Chloride (98-107) mmol/L Carbon Dioxide (22-30) mmol/L Anion Gap mmol/L BUN (9-20) mg/dL Creatinine (0.66-1.25) mg/dL Est GFR (CKD-EPI)AfAm (>60 ml/min/1.73 sqM) Est GFR (CKD-EPI)NonAf (>60 ml/min/1.73 sqM) Glucose (74-99) mg/dL Calcium (8.4-10.2) mg/dL Total Bilirubin (0.2-1.3) mg/dL AST (17-59) U/L ALT (21-72) U/L Alkaline Phosphatase (38-126) U/L Total Creatine Kinase (55-170) U/L CK-MB (CK-2) (0.0-2.4) ng/mL CK-MB (CK-2) Rel Index Troponin I (0.000-0.034) ng/mL C-Reactive Protein <5.0 (<10.0) mg/L Total Protein (6.3-8.2) g/dL Albumin (3.5-5.0) g/dL Amylase 63 (30-110) U/L Lipase (23-300) U/L Urine Color Urine Appearance (Clear) Urine pH (5.0-8.0) Ur Specific [place] (1.001-1.035) Urine Protein (Negative) Urine Glucose (UA) (Negative) Urine Ketones (Negative) Urine Blood (Negative) Urine Nitrite (Negative) Urine Bilirubin (Negative) Urine Urobilinogen (<2.0) mg/dL Ur Leukocyte Esterase (Negative) Salicylates mg/dL Urine Opiates Screen (NotDetected) Ur Oxycodone Screen (NotDetected) Urine Methadone Screen (NotDetected) Ur Propoxyphene Screen (NotDetected) Acetaminophen ug/mL Ur Barbiturates Screen (NotDetected) U Tricyclic Antidepress (NotDetected) Ur Phencyclidine Scrn (NotDetected) Ur Amphetamines Screen (NotDetected) U Methamphetamines Scrn (NotDetected) U Benzodiazepines Scrn (NotDetected) [place] mmol/L Urine Cocaine Screen (NotDetected) U Marijuana (THC) Screen (NotDetected) Serum Alcohol mg/dL 09/20/17 Range/Units 20:28 WBC (3.8-10.6) k/uL RBC (4.30-5.90) m/uL Hgb (13.0-17.5) gm/dL Hct (39.0-53.0) % MCV (80.0-100.0) fL MCH (25.0-35.0) pg MCHC (31.0-37.0) g/dL RDW (11.5-15.5) % Plt Count (150-450) k/uL Neutrophils % % Lymphocytes % % Monocytes % % Eosinophils % % Basophils % % Neutrophils # (1.3-7.7) k/uL Lymphocytes # (1.0-4.8) k/uL Monocytes # (0-1.0) k/uL Eosinophils # (0-0.7) k/uL Basophils # (0-0.2) k/uL ESR (0-15) mm/hr PT (9.0-12.0) sec INR (<1.2) Sodium (137-145) mmol/L Potassium (3.5-5.1) mmol/L Chloride (98-107) mmol/L Carbon Dioxide (22-30) mmol/L Anion Gap mmol/L BUN (9-20) mg/dL Creatinine (0.66-1.25) mg/dL Est GFR (CKD-EPI)AfAm (>60 ml/min/1.73 sqM) Est GFR (CKD-EPI)NonAf (>60 ml/min/1.73 sqM) Glucose (74-99) mg/dL Calcium (8.4-10.2) mg/dL Total Bilirubin (0.2-1.3) mg/dL AST (17-59) U/L ALT (21-72) U/L Alkaline Phosphatase (38-126) U/L Total Creatine Kinase (55-170) U/L CK-MB (CK-2) (0.0-2.4) ng/mL CK-MB (CK-2) Rel Index Troponin I (0.000-0.034) ng/mL C-Reactive Protein (<10.0) mg/L Total Protein (6.3-8.2) g/dL Albumin (3.5-5.0) g/dL Amylase (30-110) U/L Lipase (23-300) U/L Urine Color Yellow Urine Appearance Clear (Clear) Urine pH 6.0 (5.0-8.0) Ur Specific [place] 1.020 (1.001-1.035) Urine Protein Negative (Negative) Urine Glucose (UA) Negative (Negative) Urine Ketones Negative (Negative) Urine Blood Negative (Negative) Urine Nitrite Negative (Negative) Urine Bilirubin Negative (Negative) Urine Urobilinogen <2.0 (<2.0) mg/dL Ur Leukocyte Esterase Negative (Negative) Salicylates mg/dL Urine Opiates Screen Not Detected (NotDetected) Ur Oxycodone Screen Not Detected (NotDetected) Urine Methadone Screen Not Detected (NotDetected) Ur Propoxyphene Screen Not Detected (NotDetected) Acetaminophen ug/mL Ur Barbiturates Screen Not Detected (NotDetected) U Tricyclic Antidepress Not Detected (NotDetected) Ur Phencyclidine Scrn Not Detected (NotDetected) Ur Amphetamines Screen Not Detected (NotDetected) U Methamphetamines Scrn Not Detected (NotDetected) U Benzodiazepines Scrn Not Detected (NotDetected) [place] mmol/L Urine Cocaine Screen Not Detected (NotDetected) U Marijuana (THC) Screen Detected H (NotDetected) Serum Alcohol mg/dL - Radiology Data Radiology results: report reviewed (Ultrasound neck CT a IHC and facial bones negative for acute disease CT soft tissue neck which also shows minimal lymphadenopathy), image reviewed Disposition Clinical Impression: Cannabis abuse, Right middle ear infection, Lymphadenitis Disposition: HOME SELF-CARE Condition: Good Instructions: Lymphadenopathy (ED), Otitis Media (ED) Prescriptions: Amoxic-Pot Clav 875-125Mg [Augmentin 875-125] 1 tab PO Q12HR #20 tablet Is patient prescribed a controlled substance at d/c from ED?: No Referrals: Bazo,Charbal B, MD [Primary Care Provider] - 1-2 days
[2017-09-20 19:24] LABS: Basophils % (A) 1 %; Eosinophils # (A) 0.1 k/uL (0-0.7); Eosinophils % (A) 1 %; HCT 45.7 % (39.0-53.0); HGB 15.7 gm/dL (13.0-17.5); Lymphocytes # (A) 1.6 k/uL (1.0-4.8); Lymphocytes % (A) 19 %; MCH 30.4 pg (25.0-35.0); MCHC 34.3 g/dL (31.0-37.0); MCV 88.5 fL (80.0-100.0); Mean Platelet Volume 7.9; Monocytes # (A) 0.5 k/uL (0-1.0); Monocytes % (A) 6 %; Neutrophils # (A) 6.1 k/uL (1.3-7.7); Neutrophils % (A) 73 %; Platelet Count 186 k/uL (150-450); RBC 5.17 m/uL (4.30-5.90); RDW 12.2 % (11.5-15.5); WBC 8.4 k/uL (3.8-10.6)
[2017-09-20 19:28] LABS: INR 1.1 (<1.2); Prothrombin Time 10.9 sec (9.0-12.0)
[2017-09-20 19:38] LABS: ALT 37 U/L (21-72); AST 25 U/L (17-59); Acetaminophen <10.0 ug/mL; Albumin 4.5 g/dL (3.5-5.0); Alcohol <10 mg/dL; Alkaline Phosphatase 42 U/L (38-126); Amylase 66 U/L (30-110); Anion Gap 12 mmol/L; Blood Urea Nitrogen 13 mg/dL (9-20); Calcium 9.6 mg/dL (8.4-10.2); Carbon Dioxide 20 mmol/L (22-30); Chloride 109 mmol/L (98-107); Glucose 118 mg/dL (74-99); Lipase 133 U/L (23-300); Lithium <0.2 mmol/L; Potassium 4.5 mmol/L (3.5-5.1); Salicylate <1.0 mg/dL; Sodium 141 mmol/L (137-145); Total Bilirubin 0.5 mg/dL (0.2-1.3)
[2017-09-20 19:42] VITALS: TEMP 99
[2017-09-20] MEDS ORDERED: DEXAMETHASONE SOD PHOSPHATE 10 MG/ML 1 ML VIAL IV STA (19:44)
[2017-09-20 19:51] LABS: Creatine Kinase 127 U/L (55-170)
[2017-09-20 20:04] LABS: Creatine Kinase MB 0.7 ng/mL (0.0-2.4); Troponin I <0.012 ng/mL (0.000-0.034)
[2017-09-20 20:05] LABS: Amylase 63 U/L (30-110); C Reactive Protein <5.0 mg/L (<10.0)
[2017-09-20 20:45] LABS: Appearance,Urine Clear (Clear); Bilirubin,Urine Negative (Negative); Blood,Urine Negative (Negative); Color,Urine Yellow; Glucose,Urine (UA) Negative (Negative); Ketones,Urine Negative (Negative); Leukocyte Esterase,Urine Negative (Negative); Nitrite,Urine Negative (Negative); Protein,Urine Negative (Negative); Urobilinogen,Urine <2.0 mg/dL (<2.0)
--- NOTE | 2017-09-20 20:47 | US ---
EXAMINATION TYPE: US thyroid st tissue head/neck DATE OF EXAM: 09/20/2017 COMPARISON: NONE CLINICAL HISTORY: Pain. Lump right side of neck. GLAND SIZE: NODULES RIGHT: Two hypoechoic areas seen right neck largest measuring .5cm suggestive of lymph nodes. IMPRESSION: There are ordinary appearing lymph nodes in the area of the lump. These measure 4 mm and 5 mm.
[2017-09-20 20:54] LABS: Amphetamine Screen,Urine Not Detected (NotDetected); Barbiturate Screen,Urine Not Detected (NotDetected); Benzodiazepines Screen,Urine Not Detected (NotDetected); Cocaine Screen,Urine Not Detected (NotDetected); Methadone Screen, Urine Not Detected (NotDetected); Opiate Screen,Urine Not Detected (NotDetected); Oxycodone Screen, Urine Not Detected (NotDetected); Phencyclidine Screen,Urine Not Detected (NotDetected); Tricyclic Antidepressant,Urine Not Detected (NotDetected); Urn Cannabinoid Scrn Detected (NotDetected)
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
[2017-09-20 21:16] VITALS: BP 125/96; RESP 18
[2017-09-20] MEDS ORDERED: AMOXIC-POT CLAV 875-125MG 1 EACH TAB PO STA (21:38)
[2017-09-20] MEDS ORDERED: AMOXIC-POT CLAV 875MG STARTER 2 EACH TABLET PO STA (21:38)
[2017-09-20 21:40] VITALS: PULSE 85
== END 2017-09-20 21:51 | disposition home or self-care (01) ==
LOC: EC 17:27
DX: H66.91 Otitis media, unspecified, right ear (principal); I88.9 Nonspecific lymphadenitis, unspecified; F12.10 Cannabis abuse, uncomplicated; F90.9 Attention-deficit hyperactivity disorder, unspecified type; F17.200 Nicotine dependence, unspecified, uncomplicated; Z79.899 Other long term (current) drug therapy
CPT/HCPCS: 82075; 36415; 93005; 80053; 85652; 82150; 82550; 82553; 83690; 80178; 84484; 85025; 85610; 86140; 81003; 80306; 83520 ×2; 80320; 76536; 70481; 70491; 99284; 96374; 96361 ×2; J1100; Q9967

== ENCOUNTER 2017-09-27 03:03 | Emergency (ER) | payer BC ==
[2017-09-27 03:17] VITALS: TEMP 98.8
[2017-09-27 03:36] VITALS: BP 151/87; PULSE 103; RESP 18
--- NOTE | 2017-09-27 03:45 | ED ---
SOB HPI - General Chief Complaint: Shortness of Breath Stated Complaint: ALEX Time Seen by Provider: 09/27/17 03:10 Source: patient Mode of arrival: ambulatory Limitations: no limitations - History of Present Illness Initial Comments: Patient is 27-year-old man coming by ambulance to be evaluated for shortness of breath. The patient states that he had rapid onset of the symptoms, and then he tried to sit down to see if he would feel better. When the patient was not feeling better family called EMS who transported him here. When I evaluate the patient, he states that everything has resolved and that he just wants to go home now. Patient denies any symptoms at all. Complaint: shortness of breath -: minutes(s) Severity: moderate Consistency: intermittent Improves With: nothing Worsens With: nothing Associated Symptoms: denies other symptoms Treatments Prior to Arrival: none - Related Data Home Medications Medication Instructions Recorded Confirmed traZODone HCL [Desyrel] 100 mg PO HS 09/20/17 09/20/17 Previous Rx's Medication Instructions Recorded Amoxic-Pot Clav 875-125Mg 1 tab PO Q12HR #20 tablet 09/20/17 [Augmentin 875-125] Allergies Allergy/AdvReac Type Severity Reaction Status Date / Time No Known Allergies Allergy Verified 09/20/17 17:53 Review of Systems ROS Statement: Those systems with pertinent positive or pertinent negative responses have been documented in the HPI. ROS Other: All systems not noted in ROS Statement are negative. Constitutional: Denies: fever, chills ENT: Denies: throat pain, congestion Respiratory: Reports: as per HPI, dyspnea (Now resolved). Denies: cough, wheezes, stridor Cardiovascular: Denies: chest pain, palpitations, dyspnea on exertion, orthopnea , edema, syncope Gastrointestinal: Denies: abdominal pain, vomiting, diarrhea Musculoskeletal: Denies: back pain Skin: Denies: rash Neurological: Denies: headache Psychiatric: Reports: anxiety Past Medical History Past Medical History: Asthma, Hypertension History of Any Multi-Drug Resistant Organisms: None Reported Past Surgical History: Adenoidectomy, Orthopedic Surgery Additional Past Surgical History / Comment(s): hand Past Anesthesia/Blood Transfusion Reactions: Unable to Obtain Past Psychological History: ADD/ADHD Smoking Status: Current some day smoker Past Alcohol Use History: None Reported Past Drug Use History: Marijuana General Exam Limitations: no limitations General appearance: alert, in no apparent distress Head exam: Present: atraumatic, normocephalic Eye exam: Present: normal appearance. Absent: scleral icterus, conjunctival injection ENT exam: Present: normal oropharynx Respiratory exam: Present: normal lung sounds bilaterally. Absent: respiratory distress, wheezes, rales, rhonchi, stridor, chest wall tenderness, accessory muscle use, decreased breath sounds, prolonged expiratory Cardiovascular Exam: Present: regular rate, normal rhythm, normal heart sounds. Absent: systolic murmur, diastolic murmur, rubs, gallop GI/Abdominal exam: Present: soft. Absent: distended, tenderness, guarding, rebound, rigid, mass Extremities exam: Present: normal inspection, normal capillary refill. Absent: pedal edema, calf tenderness Back exam: Present: normal inspection. Absent: CVA tenderness (R), CVA tenderness (L) Neurological exam: Present: alert, normal gait Psychiatric exam: Present: normal affect. Absent: homicidal ideation, suicidal ideation Skin exam: Present: warm, dry, intact, normal color. Absent: rash Course Vital Signs 09/27/17 03:11 Temperature 98.8 F Pulse Rate 103 H Respiratory 18 Rate Blood Pressure 151/87 O2 Sat by Pulse 98 Oximetry Disposition Clinical Impression: Asthma with exacerbation Disposition: HOME SELF-CARE Condition: Good Instructions: Asthma (ED) Is patient prescribed a controlled substance at d/c from ED?: No Referrals: Arin Perez MD [Primary Care Provider] - 1-2 days
== END 2017-09-27 03:55 | disposition home or self-care (01) ==
LOC: EC 03:03
DX: J45.901 Unspecified asthma with (acute) exacerbation (principal); F90.9 Attention-deficit hyperactivity disorder, unspecified type; F17.200 Nicotine dependence, unspecified, uncomplicated; Z79.899 Other long term (current) drug therapy
CPT/HCPCS: 99285

== ENCOUNTER → 2017-11-21 | Outpatient (CLI) | payer BC ==
--- NOTE | 2017-11-21 16:59 | US ---
EXAMINATION TYPE: US scrotum with doppler. TECHNIQUE: Grayscale and color Doppler Duplex imaging performed of the scrotum. DATE OF EXAM: 11/21/2017 COMPARISON: NONE CLINICAL HISTORY: 27-year-old male N50.8 TESTICLE PAIN. FINDINGS: EXAM MEASUREMENTS: TESTICLES: Right Testicle: 4.1 x 1.9 x 2.7 cm Left Testicle: 4.0 x 1.9 x 2.6 cm Overall homogeneous appearance of the testicles. Microlithiasis visualized bilaterally. Doppler performed to assess for testicular vascularity; good bilateral color flow and waveforms are s een. There is no evidence of testicular torsion. EPIDIDYMIS HEAD: Right Epididymis: 1.2 cm Left Epididymis: 1.2 cm Presence of hydroceles: No Presence of varicoceles: No IMPRESSION: 1. Testicular microlithiasis. Consider urology referral to assess potential indications for clinical or imaging surveillance. 2. No hydrocele. No testicular torsion. Normal appearing epididymis.
== END ==
LOC: RADUSWWP 13:01
PROVIDERS: ATTEND Internal Medicine
DX: N50.89 Other specified disorders of the male genital organs (principal)
CPT/HCPCS: 76870; 93975

== ENCOUNTER 2019-04-14 17:07 | Emergency (ER) | payer BC ==
[2019-04-14] MEDS ORDERED: METOCLOPRAMIDE 5 MG/ML 2 ML VIAL IVP STA (17:19)
[2019-04-14] MEDS ORDERED: KETOROLAC 30 MG/ML 1 ML VIAL IVP STA (17:19)
[2019-04-14] MEDS ORDERED: diphenhydrAMINE 50 MG/ML 1 ML VIAL IVP STA (17:19)
[2019-04-14] MEDS ORDERED: SODIUM CHLORIDE 0.9% 1,000 ML IV ONE (17:19)
--- NOTE | 2019-04-14 17:25 | ED ---
General Adult HPI - General Chief complaint: Headache Stated complaint: Headache Time Seen by Provider: 04/14/19 17:13 Source: patient, RN notes reviewed, old records reviewed Mode of arrival: ambulatory Limitations: no limitations - History of Present Illness Initial comments: 29-year-old male presenting with 4 days of headache, concern for dehydration. Patient had a bout of nausea, diarrhea which lasted for several days, this resolved approximately 3 or 4 days ago. Patient has had decreased appetite, has felt gradual onset headache. Headache is frontal, bilateral. He's had no vomiting over the past several days. No photophobia. No focal numbness or weakness. Patient has immunodeficiency and receives intravenous immunoglobulin, received his most recent treatment 2 weeks ago. Denies current fever or chills. He does follow regularly with neurology as well as immunology. - Related Data Home Medications Medication Instructions Recorded Confirmed Dextroamphetamine/Amphetamine 20 mg PO BID 02/27/18 04/03/19 [Adderall] Hydrocodone/Acetaminophen [[place] 1 tab PO DAILY PRN 08/21/18 04/03/19 7.5-325] Allergies Allergy/AdvReac Type Severity Reaction Status Date / Time No Known Allergies Allergy Verified 04/14/19 17:10 Review of Systems ROS Statement: Those systems with pertinent positive or pertinent negative responses have been documented in the HPI. ROS Other: All systems not noted in ROS Statement are negative. Past Medical History Past Medical History: Asthma, Hypertension Additional Past Medical History / Comment(s): ANTI NMDA RECEPTOR AUTOIMMUNE ENCEPHALITIS History of Any Multi-Drug Resistant Organisms: None Reported Past Surgical History: Adenoidectomy, Orthopedic Surgery Additional Past Surgical History / Comment(s): hand Past Anesthesia/Blood Transfusion Reactions: Unable to Obtain Past Psychological History: ADD/ADHD Smoking Status: Current every day smoker Past Alcohol Use History: Daily Past Drug Use History: Marijuana General Exam Limitations: no limitations General appearance: alert, in no apparent distress Head exam: Present: atraumatic, normocephalic Eye exam: Present: normal appearance, PERRL ENT exam: Present: mucous membranes dry Neck exam: Present: normal inspection. Absent: tenderness, meningismus Respiratory exam: Present: normal lung sounds bilaterally. Absent: respiratory distress, wheezes Cardiovascular Exam: Present: regular rate, normal rhythm GI/Abdominal exam: Present: soft. Absent: distended, tenderness, guarding, rebound Extremities exam: Present: normal inspection, normal capillary refill. Absent: pedal edema Neurological exam: Present: alert, oriented X3, CN II-XII intact, normal gait, other (No ataxia, normal gait, strength is 5 out of 5 in all 4 extremities). Absent: motor sensory deficit Psychiatric exam: Present: normal affect, normal mood Skin exam: Present: warm, dry, intact. Absent: cyanosis, diaphoretic Course Vital Signs 04/14/19 04/14/19 17:08 18:57 Temperature 98.2 F Pulse Rate 80 76 Respiratory 20 16 Rate Blood Pressure 143/84 149/93 O2 Sat by Pulse 99 100 Oximetry - Reevaluation(s) Reevaluation #1: 04/14/19 19:06 Patient has history of autoimmune encephalitis, he states his most recent infusion was April 03 which was 10 days prior. He was able to discuss case with the neurologist from [facility] Dr. Workman covering for Dr. Burroughs. He does not feel this is related to the patient's known autoimmune encephalitis. He felt that usual treatment and evaluation of headache with close return parameters was appropriate. Medical Decision Making - Medical Decision Making 29-year-old male presenting with diarrhea, dehydration, headache. Headaches. Present for 4 days, no sudden onset. Patient has rare autoimmune disease causing autoimmune encephalitis. I was able to discuss case with the covering neurologist at [facility] Dr. Workman. Velpen that this was not related to encephalitis patient is not encephalopathic, he is alert and oriented, he is a nonfocal exam. Is complaining of a frontal headache. He does appear dehydrated. He is given IV hydration, basic laboratory studies are o btained, he has a normal CBC with no leukocytosis, no left shift, he has normal electrolytes, normal urinalysis no signs of infection or dehydration. After symptomatic control is feeling much better. He is eager for discharge stating that he wants to go to [facility]. He will follow-up with his neurologist, he will return with development of fever, worsening headache, any focal numbness or weakness, any acute changes. - Lab Data Result diagrams: 04/14/19 17:29 04/14/19 17:29 Lab Results 04/14/19 04/14/19 04/14/19 Range/Units 17:29 17:29 17:29 WBC 4.5 (3.8-10.6) k/uL RBC 5.23 (4.30-5.90) m/uL Hgb 15.4 (13.0-17.5) gm/dL Hct 46.2 (39.0-53.0) % MCV 88.2 (80.0-100.0) fL MCH 29.5 (25.0-35.0) pg MCHC 33.4 (31.0-37.0) g/dL RDW 12.7 (11.5-15.5) % Plt Count 209 (150-450) k/uL Neutrophils % 62 % Lymphocytes % 25 % Monocytes % 7 % Eosinophils % 2 % Basophils % 1 % Neutrophils # 2.8 (1.3-7.7) k/uL Lymphocytes # 1.1 (1.0-4.8) k/uL Monocytes # 0.3 (0-1.0) k/uL Eosinophils # 0.1 (0-0.7) k/uL Basophils # 0.0 (0-0.2) k/uL Sodium 139 (137-145) mmol/L Potassium 3.8 (3.5-5.1) mmol/L Chloride 103 (98-107) mmol/L Carbon Dioxide 27 (22-30) mmol/L Anion Gap 9 mmol/L BUN 10 (9-20) mg/dL Creatinine 0.72 (0.66-1.25) mg/dL Est GFR (CKD-EPI)AfAm >90 (>60 ml/min/1.73 sqM) Est GFR (CKD-EPI)NonAf >90 (>60 ml/min/1.73 sqM) Glucose 115 H (74-99) mg/dL Plasma Lactic Acid Bryan 1.5 (0.7-2.0) mmol/L Calcium 9.2 (8.4-10.2) mg/dL Total Bilirubin 0.5 (0.2-1.3) mg/dL AST 65 H (17-59) U/L ALT 63 H (4-49) U/L Alkaline Phosphatase 61 (38-126) U/L Total Protein 8.2 (6.3-8.2) g/dL Albumin 4.4 (3.5-5.0) g/dL Urine Color Urine Appearance (Clear) Urine pH (5.0-8.0) Ur Specific [place] (1.001-1.035) Urine Protein (Negative) Urine Glucose (UA) (Negative) Urine Ketones (Negative) Urine Blood (Negative) Urine Nitrite (Negative) Urine Bilirubin (Negative) Urine Urobilinogen (<2.0) mg/dL Ur Leukocyte Esterase (Negative) 04/14/19 Range/Units 18:56 WBC (3.8-10.6) k/uL RBC (4.30-5.90) m/uL Hgb (13.0-17.5) gm/dL Hct (39.0-53.0) % MCV (80.0-100.0) fL MCH (25.0-35.0) pg MCHC (31.0-37.0) g/dL RDW (11.5-15.5) % Plt Count (150-450) k/uL Neutrophils % % Lymphocytes % % Monocytes % % Eosinophils % % Basophils % % Neutrophils # (1.3-7.7) k/uL Lymphocytes # (1.0-4.8) k/uL Monocytes # (0-1.0) k/uL Eosinophils # (0-0.7) k/uL Basophils # (0-0.2) k/uL Sodium (137-145) mmol/L Potassium (3.5-5.1) mmol/L Chloride (98-107) mmol/L Carbon Dioxide (22-30) mmol/L Anion Gap mmol/L BUN (9-20) mg/dL Creatinine (0.66-1.25) mg/dL Est GFR (CKD-EPI)AfAm (>60 ml/min/1.73 sqM) Est GFR (CKD-EPI)NonAf (>60 ml/min/1.73 sqM) Glucose (74-99) mg/dL Plasma Lactic Acid Bryan (0.7-2.0) mmol/L Calcium (8.4-10.2) mg/dL Total Bilirubin (0.2-1.3) mg/dL AST (17-59) U/L ALT (4-49) U/L Alkaline Phosphatase (38-126) U/L Total Protein (6.3-8.2) g/dL Albumin (3.5-5.0) g/dL Urine Color Light Yellow Urine Appearance Clear (Clear) Urine pH 6.5 (5.0-8.0) Ur Specific [place] 1.007 (1.001-1.035) Urine Protein Negative (Negative) Urine Glucose (UA) Negative (Negative) Urine Ketones Negative (Negative) Urine Blood Negative (Negative) Urine Nitrite Negative (Negative) Urine Bilirubin Negative (Negative) Urine Urobilinogen <2.0 (<2.0) mg/dL Ur Leukocyte Esterase Negative (Negative) Disposition Clinical Impression: Headache Disposition: HOME SELF-CARE Condition: Good Instructions (If sedation given, give patient instructions): Acute Headache (ED) Additional Instructions: Please follow up with your primary care physician, urologist, and please return with any worsening or changing symptoms. Is patient prescribed a controlled substance at d/c from ED?: No Referrals: Rohith Kay MD [Primary Care Provider] - 1-2 days Time of Disposition: 19:58
[2019-04-14 17:39] LABS: Basophils % (A) 1 %; Eosinophils # (A) 0.1 k/uL (0-0.7); Eosinophils % (A) 2 %; HCT 46.2 % (39.0-53.0); HGB 15.4 gm/dL (13.0-17.5); Lymphocytes # (A) 1.1 k/uL (1.0-4.8); Lymphocytes % (A) 25 %; MCH 29.5 pg (25.0-35.0); MCHC 33.4 g/dL (31.0-37.0); MCV 88.2 fL (80.0-100.0); Mean Platelet Volume 9.3; Monocytes # (A) 0.3 k/uL (0-1.0); Monocytes % (A) 7 %; Neutrophils # (A) 2.8 k/uL (1.3-7.7); Neutrophils % (A) 62 %; Platelet Count 209 k/uL (150-450); RBC 5.23 m/uL (4.30-5.90); RDW 12.7 % (11.5-15.5); WBC 4.5 k/uL (3.8-10.6)
[2019-04-14 17:48] LABS: ALT 63 U/L (4-49); AST 65 U/L (17-59); African American GFR (CKD) >90 (>60 ml/min/1.73 sqM); Albumin 4.4 g/dL (3.5-5.0); Alkaline Phosphatase 61 U/L (38-126); Anion Gap 9 mmol/L; Blood Urea Nitrogen 10 mg/dL (9-20); Calcium 9.2 mg/dL (8.4-10.2); Carbon Dioxide 27 mmol/L (22-30); Chloride 103 mmol/L (98-107); Glucose 115 mg/dL (74-99); Non-African American GFR(CKD) >90 (>60 ml/min/1.73 sqM); Potassium 3.8 mmol/L (3.5-5.1); Sodium 139 mmol/L (137-145); Total Bilirubin 0.5 mg/dL (0.2-1.3); Total Protein 8.2 g/dL (6.3-8.2)
[2019-04-14] MEDS ORDERED: SODIUM CHLORIDE 0.9% 500 ML 500 ML IV ONE (18:32)
[2019-04-14] MEDS ORDERED: methylPREDNISolone SOD SUCCI 125 MG/2 ML VIAL IV STA (18:33)
[2019-04-14 19:09] LABS: Appearance,Urine Clear (Clear); Bilirubin,Urine Negative (Negative); Blood,Urine Negative (Negative); Color,Urine Light Yellow; Glucose,Urine (UA) Negative (Negative); Ketones,Urine Negative (Negative); Leukocyte Esterase,Urine Negative (Negative); Nitrite,Urine Negative (Negative); PH, Urine 6.5 (5.0-8.0); Protein,Urine Negative (Negative); Specific Gravity,Urine 1.007 (1.001-1.035); Urobilinogen,Urine <2.0 mg/dL (<2.0)
[2019-04-14 20:10] VITALS: BP 132/78; PULSE 78; RESP 18; TEMP 99
== END 2019-04-14 20:09 | disposition home or self-care (01) ==
LOC: EC 17:07
DX: R51 Headache (principal); R63.0 Anorexia; G04.81 Other encephalitis and encephalomyelitis; I10 Essential (primary) hypertension; F90.9 Attention-deficit hyperactivity disorder, unspecified type; F17.200 Nicotine dependence, unspecified, uncomplicated; Z79.899 Other long term (current) drug therapy
CPT/HCPCS: 36415; 80053; 83605; 85025; 81003; 99284; 96374; 96375 ×3; 96361; J1200; J2765; J2930; J1885

== ENCOUNTER → 2019-12-04 | Outpatient (CLI) | payer BC ==
[2019-12-05 04:22] LABS: Toxoplasma Antibody (IgG) <3.0 IU/mL (<7.2); Toxoplasma Antibody (IgM) <3.0 AU/mL (<8.0)
== END | disposition home or self-care (01) ==
LOC: LABWHC1 09:42
PROVIDERS: ATTEND Psychiatry & Neurology Neurology
DX: G04.81 Other encephalitis and encephalomyelitis (principal)
CPT/HCPCS: 36415; 86777; 86778

== ENCOUNTER → 2020-04-03 | Outpatient (CLI) | payer BC ==
--- NOTE | 2020-04-03 10:47 | MM ---
Reason for exam: clinical finding. Physical Findings: Nurse Summary: 1cm nodule in the right breast at the nipple and a 2cm nodule in the left breast at the nipple (nurse TM). MG Diagnostic Mammo w CAD BHARATH Bilateral CC and MLO view(s) were taken. Increased retroareolar density. These results were verbally communicated with the patient and result sheet given to the patient on 04/03/20. ASSESSMENT: Incomplete: need additional imaging evaluation, BI-RAD 0 RECOMMENDATION: Ultrasound of both breasts.
--- NOTE | 2020-04-03 10:48 | USB ---
Reason for exam: additional evaluation requested from abnormal screening. US Breast Limited BILAT Right limited breast ultrasound including focal area of concern, retroareolar and axilla demonstrates no cystic or solid lesion seen. Left limited breast ultrasound including focal area of concern, retroareolar and axilla demonstrates no cystic or solid lesion seen. These results were verbally communicated with the patient and result sheet given to the patient on 04/03/20. ASSESSMENT: Negative, BI-RAD 1 RECOMMENDATION: Clinical management of both breasts. Manage patient on a clinical basis.
== END | disposition home or self-care (01) ==
LOC: RADMAMWWP 09:05
PROVIDERS: ATTEND Family Medicine
DX: N62 Hypertrophy of breast (principal)
CPT/HCPCS: 77066

== ENCOUNTER → 2020-11-04 | Outpatient (CLI) | payer BC ==
--- NOTE | 2020-11-05 07:14 | US ---
EXAMINATION TYPE: US scrotum with doppler. Grayscale and color Doppler Duplex imaging performed of terrance murcia scrotum. 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 Patient states having an autoimmune disease that he has to get fusions monthly. No pain. No swelling. EXAM MEASUREMENTS: TESTICLES: Right Testicle: 3.0 x 3.9 x 2.4 cm Left Testicle: 4.0 x 2.8 x 2.3 cm EPIDIDYMIS HEAD: Right Epididymis: 0.8 x 0.6 x 0.7 cm Left Epididymis: 1.0 x 0.8 x 0.6 cm Doppler performed to assess for testicular vascularity; good bilateral color flow and waveforms are s een. There is no evidence of testicular torsion. Presence of hydroceles: no Presence of varicoceles: no Small amount of microlithiasis visualized bilaterally. IMPRESSION: Microlithiasis. Otherwise unremarkable study.
== END | disposition home or self-care (01) ==
LOC: RADUSWWP 16:12
PROVIDERS: ATTEND Psychiatry & Neurology Neurology
DX: G04.81 Other encephalitis and encephalomyelitis (principal)
CPT/HCPCS: 76870; 93975

== ENCOUNTER 2021-02-09 10:06 | Emergency (ER) | payer BC ==
--- NOTE | 2021-02-09 11:42 | XR ---
EXAMINATION TYPE: XR ankle complete RT DATE OF EXAM: 02/09/2021 CLINICAL HISTORY: Pain and swelling after injury. TECHNIQUE: Frontal, lateral and oblique images of the right ankle are obtained. COMPARISON: None. FINDINGS: There is no acute fracture/dislocation evident in the right ankle. The ankle mortise appe ars within normal limits. Vcis-by-[id number] diffuse soft tissue swelling over the lateral malleolus is noted. IMPRESSION: There is no acute fracture or dislocation in the right ankle.
--- NOTE | 2021-02-09 12:27 | ED ---
General Adult HPI - General Stated complaint: R ankle injury Time Seen by Provider: 02/09/21 12:26 Source: RN notes reviewed - History of Present Illness Initial comments: 30-year-old male presents to the emergency room for chief complaint of right ankle pain. Patient states that he missed a step and twisted his right ankle. States it is painful to ambulate on. States it is swollen. Patient wants to make sure it is not broken. He did not sustain any other injuries. Denies right foot pain.Patient has no other complaints at this time including shortness of breath, chest pain, abdominal pain, nausea or vomiting, headache, or visual changes. - Related Data Home Medications Medication Instructions Recorded Confirmed Dextroamphetamine/Amphetamine 20 mg PO BID 02/27/18 01/15/21 [Adderall] Hydrocodone/Acetaminophen [[place] 1 tab PO DAILY PRN 08/21/18 01/15/21 7.5-325] Allergies Allergy/AdvReac Type Severity Reaction Status Date / Time No Known Allergies Allergy Verified 02/09/21 12:28 Review of Systems ROS Statement: Those systems with pertinent positive or pertinent negative responses have been documented in the HPI. ROS Other: All systems not noted in ROS Statement are negative. Past Medical History Past Medical History: No Reported History (Patient has no other complaints at this time including shortness of breath, chest pain, abdominal pain, nausea or vomiting, headache, or visual changes.), Asthma, Hypertension Additional Past Medical History / Comment(s): ANTI NMDA RECEPTOR AUTOIMMUNE ENCEPHALITIS History of Any Multi-Drug Resistant Organisms: None Reported Past Surgical History: Adenoidectomy, Orthopedic Surgery Additional Past Surgical History / Comment(s): hand Past Anesthesia/Blood Transfusion Reactions: Unable to Obtain Smoking Status: Current every day smoker General Exam General appearance: alert, in no apparent distress Head exam: Present: atraumatic Eye exam: Present: normal appearance, PERRL, EOMI. Absent: scleral icterus, conjunctival injection ENT exam: Present: normal exam, mucous membranes moist Neck exam: Present: normal inspection, full ROM. Absent: tenderness Respiratory exam: Present: normal lung sounds bilaterally. Absent: respiratory distress, wheezes Cardiovascular Exam: Present: regular rate, normal rhythm, normal heart sounds Extremities exam: Present: full ROM (Full range of motion of the right ankle.), tenderness (Tenderness to the lateral malleolus of the right ankle. No tenderness to the fifth metatarsal navicular or medial malleolus. No tenderness elsewhere in the right foot.), normal capillary refill (Capillary refill less than 2 seconds, DP pulse 2+ right lower extremity), joint swelling (Moderate edema noted to the lateral malleolus of the right ankle.). Absent: calf tenderness Course Vital Signs 02/09/21 12:25 Temperature 97.8 F Pulse Rate 78 Respiratory 18 Rate Blood Pressure 139/70 O2 Sat by Pulse 100 Oximetry Medical Decision Making - Medical Decision Making X-ray report and image was reviewed. X-ray of the ankle shows no acute fracture or dislocation. There is soft tissue swelling. Patient was placed in an Aircast and given concern for soft tissue injury. He will need to follow up with orthopedics, referral given. He will return here for any worsening symptoms. Disposition Clinical Impression: Ankle pain Disposition: HOME SELF-CARE Condition: Good Instructions (If sedation given, give patient instructions): Ankle Sprain (ED) Additional Instructions: Please follow-up with your doctor or orthopedics in one to 2 days. Return to the emergency room for any worsening symptoms. Is patient prescribed a controlled substance at d/c from ED?: No Referrals: Rohith Kay MD [Primary Care Provider] - 1-2 days Carlton Martínez DO [Doctor of Osteopathic Medicine] - 1-2 days Time of Disposition: 12:26
[2021-02-09 12:28] VITALS: BP 139/70; PULSE 78; RESP 18; TEMP 97.8
== END 2021-02-09 12:56 | disposition home or self-care (01) ==
LOC: EC 10:06
DX: M25.571 Pain in right ankle and joints of right foot (principal); J45.909 Unspecified asthma, uncomplicated; I10 Essential (primary) hypertension; F17.200 Nicotine dependence, unspecified, uncomplicated
CPT/HCPCS: 99283; 73610; L4350

== ENCOUNTER → 2023-01-13 | Outpatient (CLI) | payer BC ==
--- NOTE | 2023-01-14 07:46 | CT ---
EXAMINATION TYPE: CT ChestAbdPelvis w con DATE OF EXAM: 01/13/2023 INDICATION: H/O Anti-NMDAR encephalitis, trying to find root cause to disease COMPARISON: No pertinent prior CT exams. Scrotal ultrasound 11/04/[address] DLP: 2792.6 mGycm CONTRAST: Performed with Oral Contrast and with IV Contrast, patient injected with 100 mL of Isovue 300. TECHNIQUE: Axial images at 5 mm thick sections. Reconstructed images in the coronal plane. Delayed images through the kidneys. FINDINGS: CT CHEST: Portion of the thyroid visualized is normal. No suspicious lung nodules or focal infiltrates are present. There may be a 1.1 cm right suprahilar lymph node. No additional enlarged lymphadenopathy is within t he mediastinum or hilar regions. No suspicious axillary adenopathy evident. The ascending aorta diameter at the level of the main pulmonary artery is 3. cm. The main pulmonary artery diameter at the bifurcation is 2.[address] ABDOMEN: Liver: Normal. No suspicious masses identified. Spleen: Normal Pancreas: Normal Adrenal glands: The adrenal glands are normal. Gallbladder: Normal Kidneys: No masses are evident. No hydronephrosis is present. No cysts are present. Delayed images were obtained through the kidneys, which remain unremarkable. Aorta: Normal Inferior vena cava: Normal. CT PELVIS: Loops of bowel within the abdomen and pelvis are normal. There are loops of bowel which are incom pletely distended or lack oral contrast limiting their evaluation. Appendix: Normal as visualized. Urinary bladder: Normal. Genitourinary structures: Prostate is normal Osseous structures: No suspicious lytic or sclerotic lesions evident. Lymphadenopathy: No suspicious inguinal adenopathy. No iliac chain or pelvic abnormal adenopathy evid ent. No periaortic or retrocaval adenopathy. No suspicious adenopathy at the level of the renal veins . IMPRESSION: 1. Solitary borderline enlarged lymph node right suprahilar region. 2.No suspicious abnormalities otherwise identified by CT chest abdomen and pelvis. 3. Comment: Anti-NMDAR encephalitis has been associated with ovarian teratoma in women. It is noted t hat the ultrasound of the scrotum had microlithiasis which can be associated with testicular neoplasm . Consider rescanning scrotal ultrasound for testicular cancer.
== END | disposition home or self-care (01) ==
LOC: RADCTMAIN 14:07
PROVIDERS: ATTEND Psychiatry & Neurology Neurology
DX: G04.81 Other encephalitis and encephalomyelitis (principal); R59.0 Localized enlarged lymph nodes
CPT/HCPCS: 71260; 74177; Q9967